=== PATIENT | female | born 1990 | race Caucasian/White ===

== ENCOUNTER 2023-06-23 13:19 | Emergency (ER) | payer OTHER ==
[2023-06-23 13:40] VITALS: BP 124/79; PULSE 91; RESP 18; TEMP 99; BMI 23.3
== END 2023-06-23 14:55 | disposition home or self-care (01) ==
LOC: FER 13:19
DX: S22.32XA Fracture of one rib, left side, initial encounter for closed fracture (principal); R07.81 Pleurodynia; W01.198A Fall on same level from slipping, tripping and stumbling with subsequent striking against other object, initial encounter; Y92.002 Bathroom of unspecified non-institutional (private) residence as the place of occurrence of the external cause
CPT/HCPCS: 71101-TC-LT-FY; 99283-25

== ENCOUNTER 2023-07-03 08:17 | Emergency (ER) | payer OTHER ==
[2023-07-03 08:29] VITALS: BP 118/75; PULSE 80; RESP 18; TEMP 98; BMI 29.2
== END 2023-07-03 10:03 | disposition home or self-care (01) ==
LOC: FER 08:17
DX: R07.81 Pleurodynia (principal); S22.32XD Fracture of one rib, left side, subsequent encounter for fracture with routine healing; R06.02 Shortness of breath
CPT/HCPCS: 71046-TC-FY; 99283-25